=== PATIENT | male | born 1990 | race Asian ===

== ENCOUNTER 2018-07-21 15:05 | Emergency (ER) | payer OTHER ==
[~2018-07-21] VITALS: Ht 177.8 cm; Wt 72.6 kg
[2018-07-21] MEDS ORDERED: CLON0.1T16 PO (15:20)
[2018-07-21 17:07] LABS: PLATELET COUNT 262 K/uL (142-355)
[2018-07-21 18:15] VITALS: BP 153/92; TEMP 97.8
== END 2018-07-21 18:15 | disposition home or self-care (01) ==
LOC: ED 15:05
PROVIDERS: Emergency Medicine
DX: J45.909 Unspecified asthma, uncomplicated (principal); F17.210 Nicotine dependence, cigarettes, uncomplicated
CPT/HCPCS: 80053; 85027; 94664; 96372; 99283; J2930